=== PATIENT | female | born 1945 | race Caucasian/White ===

== ENCOUNTER 2024-02-05 10:19 | Outpatient (CLI) | payer OTHER, SELFPAY | END 2024-02-05 10:20 | disposition home or self-care (01) | LOC: AMB 02-13 23:08 | PROVIDERS: Visit Provider Emergency Medicine | DX: R51.9 Headache, unspecified (principal); R42 Dizziness and giddiness; R43.8 Other disturbances of smell and taste | CPT/HCPCS: A0998 ==